=== PATIENT | male | born 1950 | race African-American/Black ===

== ENCOUNTER 2022-10-10 12:06 | Emergency (ER) | payer BC, OTHER ==
[~2022-10-10] VITALS: Ht 170.2 cm; Wt 69.0 kg
[~2022-10-10 12:06] MED LIST: ASPI81TA47; ATEN50TA; HYDR12.529; IBUP-2029; LISI10TA26; OMEP20CA4; TRAM50TA3
[2022-10-10 12:54] LABS: BASOPHILS % 0.8 % (0.0-2.0); EOSINOPHILS % 6.2 % (0.0-5.0); HEMATOCRIT. 42.5 % (42.0-52.0); HEMOGLOBIN. 14.2 g/dL (14.0-18.0); MEAN CORPUSCULAR HEMOGLOBIN 30.6 pg (28.0-32.0); MEAN CORPUSCULAR VOLUME 91.9 fL (80.0-94.0); MEAN PLATELET VOLUME 8.6 fl (7.4-10.4); MONOCYTES % 11.7 % (2.0-8.0); NEUTROPHILS % 39.3 % (40.0-76.0); PLATELET 224 x1000/uL (130-400); RED BLOOD CELL COUNT 4.63 mill/uL (4.7-6.1)
[2022-10-10 13:08] LABS: CHLORIDE 108 mEq/L (98-107)
[2022-10-10 13:20] LABS: ETHANOL BLOOD < 10 mg/dL
[2022-10-10 14:20] VITALS: BP 167/91
== END 2022-10-10 15:20 | disposition home or self-care (01) ==
LOC: ER 13:11
DX: R55 Syncope and collapse (principal); Z98.890 Other specified postprocedural states
CPT/HCPCS: 36415; 80053; 80320; 82962; 84484; 85025; 93005; 99284; G0480

== ENCOUNTER 2023-01-29 12:50 | Emergency (ER) | payer BC ==
[~2023-01-29] VITALS: Ht 170.2 cm; Wt 69.0 kg
[2023-01-29 12:59] VITALS: BP 131/88; PULSE 69; RESP 19; TEMP 98.3; O2SAT 99
[2023-01-29] MEDS ORDERED: TETANUS, DIPHTHERIA, PERTUSSIS VAC/PF 0.5ML (>10YR OLD) IM ONE (14:15)
[2023-01-29] MEDS ORDERED: BACITRACIN ZINC OINT UDPKT TOP ONE (14:15)
[2023-01-29] MEDS ORDERED: LIDOCAINE HCL/PF 1% 10 MG/ML 5ML VIAL INFIL ONE ×2 (14:15→14:45)
[2023-01-29] MEDS ORDERED: CEPH500T MT (15:06)
[2023-01-29] MEDS ORDERED: BO1 TP (15:06)
== END 2023-01-29 15:30 | disposition home or self-care (01) ==
LOC: ER 12:50
DX: S61.210A Laceration without foreign body of right index finger without damage to nail, initial encounter (principal); V18.0XXA Pedal cycle driver injured in noncollision transport accident in nontraffic accident, initial encounter; Y93.89 Activity, other specified; Y92.89 Other specified places as the place of occurrence of the external cause; Y99.8 Other external cause status
CPT/HCPCS: 99283; 90715; 12002; 90471; J3490

== ENCOUNTER 2023-02-13 12:21 | Emergency (ER) | payer BC, MEDICAID ==
[~2023-02-13 12:21] MED LIST changes: +BO1 TP; +CEPH500T MT
[2023-02-13 12:24] VITALS: PULSE 68; RESP 18
[2023-02-13] MEDS ORDERED: BO1 TP (12:36)
== END 2023-02-13 15:15 | disposition home or self-care (01) ==
LOC: ER 14:25
DX: Z48.02 Encounter for removal of sutures (principal); I10 Essential (primary) hypertension
CPT/HCPCS: 99281